=== PATIENT | female | born 1985 | race Caucasian/White ===

== ENCOUNTER 2020-12-14 08:15 | Inpatient (IN) | payer OTHER ==
[2020-12-14] MEDS ORDERED: OXYTOCIN 30 UNITS in 0.9% NS 30 UNIT/500 ML INFUS.BAG IVPB SCH (09:00)
[2020-12-14] MEDS: ELECTROLYTE-148 SOLN 1,000 ML IV SCH ×3 (09:20→18:30)
[2020-12-14] MEDS ORDERED: OXYTOCIN 30 UNITS in 0.9% NS 30 UNIT/500 ML INFUS.BAG IVPB ONE (09:32)
[2020-12-14 09:48] VITALS: BMI 36.7
[2020-12-14 10:44] LABS: BASO % 0.4 % (0-2.0); EOS % 0.4 % (0-4.5); HEMATOCRIT 34.9 % (32.4-45.2); HEMOGLOBIN 12.1 GM/dL (10.7-15.3); MCH 31.9 pg (25.7-33.7); MCHC 34.7 g/dl (32.0-36.0); MEAN CELL VOLUME 91.8 fl (80-96); MEAN PLT VOLUME 9.8 fl (7.5-11.1); MONO % 3.9 % (3.8-10.2); NEUT % 83.3 % (42.8-82.8); PLATELET COUNT 255 K/MM3 (134-434); RDW 14.3 % (11.6-15.6); WHITE BLOOD COUNT 8.4 K/mm3 (4.0-10.0)
[2020-12-14 10:56] LABS: INR 0.89 (0.83-1.09)
[2020-12-14 10:58] LABS: POTASSIUM 3.9 mmol/L (3.5-5.1)
[2020-12-14 10:59] LABS: ACTIVATED PTT 27.2 SECONDS (25.2-36.5); CALCIUM 8.7 mg/dL (8.5-10.1)
[2020-12-14 11:00] LABS: BLOOD UREA NITROGEN 9.4 mg/dL (7-18)
[2020-12-14 11:03] LABS: CREATININE 0.5 mg/dL (0.55-1.3)
[2020-12-14] MEDS ORDERED: PCA PUMP NR ONE ×2 (17:40→21:44)
[2020-12-14] MEDS ORDERED: FENTANYL/BUPIVACAINE/NS/PF - PCEA - 50 ML DISP.SYRIN EP ONE ×2 (17:40→21:44)
[2020-12-14] MEDS ORDERED: BUPIVACAINE HCL/PF 0.25% (2.5MG/ML) 10 ML VIAL ONE (17:47)
[2020-12-14] MEDS ORDERED: NALOXONE HCL 0.4 MG/ML VIAL IVPUSH PRN (18:12)
[2020-12-14] MEDS ORDERED: FENTANYL/BUPIVACAINE/NS/PF - PCEA - 50 ML DISP.SYRIN EP SCH (18:15)
[2020-12-14] MEDS ORDERED: OXYTOCIN 20 UNITS in 0.9% NS 20 UNIT/1,000 ML INFUS.BAG IV ONE ×2 (21:53→23:23)
[2020-12-14] MEDS ORDERED: LIDOCAINE HCL 1% PRESERVATIVE FREE - 30ML VIAL ONE (21:54)
[2020-12-14] MEDS ORDERED: METHYLERGONOVINE MALEATE 0.2 MG/1 ML AMP IM PRN (22:20)
[2020-12-14] MEDS ORDERED: BENZOCAINE 20% 57 GM BOTTLE TP PRN (22:20)
[2020-12-14] MEDS ORDERED: BISACODYL 10 MG SUPP.RECT RC PRN (22:20)
[2020-12-14] MEDS ORDERED: WITCH HAZEL 50% (TUCKS) 40 PAD/JAR PAD TP PRN (22:20)
[2020-12-14] MEDS ORDERED: BENZOCAINE 28 GM HEMORRHOIDAL OINTMENT TP PRN (22:20)
[2020-12-14] MEDS ORDERED: OXYTOCIN 20 UNITS in 0.9% NS 20 UNIT/1,000 ML INFUS.BAG IV SCH (22:30)
[2020-12-15] MEDS: IBUPROFEN 600 MG TABLET (FP) PO PRN ×4 (03:18→21:23)
[2020-12-15] MEDS: ACETAMINOPHEN 325 MG TABLET (FP) PO PRN ×4 (03:19→21:23)
[2020-12-15 08:45] LABS: EOS % 0.2 % (0-4.5); HEMOGLOBIN 11.5 GM/dL (10.7-15.3); PLATELET COUNT 213 K/MM3 (134-434)
[2020-12-15 08:48] LABS: BASO % 0.2 % (0-2.0); HEMATOCRIT 34.1 % (32.4-45.2); LYMPH % 4.6 % (8-40); MCH 31.5 pg (25.7-33.7); MCHC 33.8 g/dl (32.0-36.0); MEAN CELL VOLUME 93.4 fl (80-96); MEAN PLT VOLUME 10.2 fl (7.5-11.1); MONO % 3.4 % (3.8-10.2); NEUT % 91.6 % (42.8-82.8); RBC 3.65 M/mm3 (3.60-5.2); RDW 14.2 % (11.6-15.6); WHITE BLOOD COUNT 16.2 K/mm3 (4.0-10.0)
[2020-12-15] MEDS: PRENATAL VITAMINS W/ FOLIC ACID TABLET (FP) PO SCH (10:30)
[2020-12-15 10:42] LABS: ANISOCYTOSIS 0; MACROCYTOSIS 0; PLATELET ESTIMATE NORMAL
[2020-12-15] MEDS ORDERED: SENNOSIDES/DOCUSATE COMBO (SENNA PLUS) TABLET (UD) PO PRN (22:00)
[2020-12-16] MEDS: IBUPROFEN 600 MG TABLET (FP) PO PRN (08:08)
[2020-12-16] MEDS: ACETAMINOPHEN 325 MG TABLET (FP) PO PRN (08:09)
[2020-12-16 08:25] VITALS: BP 126/78; PULSE 72; TEMP 98.4
[2020-12-16] MEDS: PRENATAL VITAMINS W/ FOLIC ACID TABLET (FP) PO SCH (09:50)
== END 2020-12-16 13:35 | disposition home or self-care (01) | DRG 560 ==
LOC: JLDR 08:15 → J3W 12-15 00:12
PROVIDERS: ADMIT Obstetrics & Gynecology; ATTEND Obstetrics & Gynecology
PROC: 10E0XZZ Delivery of Products of Conception, External Approach (ICD-10-PCS; principal; 2020-12-14)
PROC: 10907ZC Drainage of Amniotic Fluid, Therapeutic from Products of Conception, Via Natural or Artificial Opening (ICD-10-PCS; 2020-12-14)
DX: O24.429 Gestational diabetes mellitus in childbirth, unspecified control (principal); Z3A.39 39 weeks gestation of pregnancy; Z37.0 Single live birth
CPT/HCPCS: 36415; 59409; 80048; 85025; 85610; 85730; 86780; 86850; 86900; 86901

== ENCOUNTER 2021-02-03 04:12 | Day surgery (SDC) | payer OTHER ==
[2021-02-02 16:33] VITALS: BMI 32.7
[2021-02-03 11:44] LABS: HEMATOCRIT 34.7 % (32.4-45.2); HEMOGLOBIN 11.7 GM/dL (10.7-15.3); MCH 30.8 pg (25.7-33.7); MCHC 33.9 g/dl (32.0-36.0); MEAN CELL VOLUME 90.8 fl (80-96); MEAN PLT VOLUME 7.9 fl (7.5-11.1); PLATELET COUNT 306 K/MM3 (134-434); RBC 3.82 M/mm3 (3.60-5.2); RDW 14.8 % (11.6-15.6); WHITE BLOOD COUNT 5.3 K/mm3 (4.0-10.0)
[2021-02-03] MEDS ORDERED: MIDAZOLAM HCL 2 MG/2 ML SINGLE DOSE VIAL ONE (13:09)
[2021-02-03] MEDS ORDERED: PROPOFOL 20 ML ONE (13:10)
[2021-02-03] MEDS ORDERED: FERRIC SUBSULFATE 500 ML BOTTLE TP ONE (13:45)
[2021-02-03] MEDS ORDERED: IODINE/POTASSIUM IODIDE 5%/10% 14 ML BOTTLE NR ONE (13:50)
[2021-02-03] MEDS ORDERED: DEXAMETHASONE SOD PHOSPHATE 4 MG/1 ML VIAL ONE (14:10)
[2021-02-03] MEDS ORDERED: ONDANSETRON 4 MG/2 ML VIAL IVPUSH PRN (14:24)
[2021-02-03] MEDS ORDERED: PROMETHAZINE HCL 25 MG/1 ML VIAL IVPB PRN (14:24)
[2021-02-03] MEDS ORDERED: oxyCODONE HCL 5 MG TABLET PO PRN (14:24)
[2021-02-03] MEDS ORDERED: LACTATED RINGERS SOLUTION 1,000 ML IV SCH (14:30)
[2021-02-03] MEDS ORDERED: KETOROLAC TROMETHAMINE 30 MG/1 ML VIAL IVPUSH ONE (15:19)
[2021-02-03 16:00] VITALS: TEMP 98
[2021-02-03 17:20] VITALS: BP 129/65; PULSE 68
== END 2021-02-03 17:15 | disposition home or self-care (01) ==
LOC: JASU-SURG 04:12
PROVIDERS: ATTEND Obstetrics & Gynecology
PROC: 0UBC8ZX Excision of Cervix, Via Natural or Artificial Opening Endoscopic, Diagnostic (ICD-10-PCS; principal; 2021-02-03 13:00)
DX: D06.0 Carcinoma in situ of endocervix (principal); N72 Inflammatory disease of cervix uteri
CPT/HCPCS: 36415; 84702; 85027; 86850; 86900; 86901; 86922; 88307-TC; 94760

== ENCOUNTER 2022-07-02 15:59 | Emergency (ER) | payer OTHER ==
[2022-07-02 16:17] VITALS: BP 154/76; PULSE 65; RESP 18; TEMP 98; BMI 32.9
[2022-07-02 18:14] LABS: BASO % 0.7 % (0-2.0); EOS % 1.1 % (0-4.5); HEMATOCRIT 37.8 % (32.4-45.2); HEMOGLOBIN 12.7 GM/dL (10.7-15.3); LYMPH % 16.9 % (8-40); MCH 31.1 pg (25.7-33.7); MCHC 33.6 g/dl (32.0-36.0); MEAN CELL VOLUME 92.8 fl (80-96); MEAN PLT VOLUME 8.5 fl (7.5-11.1); MONO % 4.7 % (3.8-10.2); NEUT % 76.6 % (42.8-82.8); PLATELET COUNT 373 10^3/uL (134-434); RBC 4.07 M/mm3 (3.60-5.2); RDW 13.6 % (11.6-15.6)
[2022-07-02 18:44] LABS: CALCIUM 9.3 mg/dL (8.5-10.1)
[2022-07-02 18:45] LABS: ALBUMIN 3.8 g/dl (3.4-5.0); BLOOD UREA NITROGEN 7.4 mg/dL (7-18)
[2022-07-02 18:48] LABS: CREATININE 0.6 mg/dL (0.55-1.3)
[2022-07-02 18:51] LABS: BILIRUBIN,TOTAL 0.4 mg/dL (0.2-1); TOT PROT 7.4 g/dl (6.4-8.2)
[2022-07-03 02:40] LABS: EPI CELLS >36 /uL (0-25.1); HYALINE CASTS 3 /uL (0-3.1); PH,URINE 6.5 (5.0-8.0); URINE APPEARANCE CLOUDY; URINE BACTERIA 1049 /uL (0-1359); URINE BILIRUBIN NEGATIVE (NEGATIVE); URINE COLOR ORANGE; URINE GLUCOSE (UA) NEGATIVE (NEGATIVE); URINE KETONE NEGATIVE (NEGATIVE); URINE LEUK ESTERASE 2+ (NEGATIVE); URINE NITRITE NEGATIVE (NEGATIVE); URINE PROTEIN 2+ (NEGATIVE); URINE RBC 2804 /uL (0-23.9); URINE UROBILINOGEN 0.2 mg/dL (0.2-1.0); URINE WBC 234 /uL (0-25.8)
[2022-07-03 02:52] LABS: HCG,QUALITATIVE URINE POSITIVE
== END 2022-07-03 04:36 | disposition home or self-care (01) ==
LOC: JER 15:59
DX: O03.9 Complete or unspecified spontaneous abortion without complication (principal)
CPT/HCPCS: 36415; 76817-TC; 80053; 81003; 84702; 84703; 85025; 86850; 86900; 86901; 87086; 99284-25

== ENCOUNTER 2022-07-08 15:42 | Emergency (ER) | payer OTHER ==
[2022-07-08 15:53] VITALS: BP 109/67; PULSE 72; RESP 18; TEMP 98.2; BMI 34.2
== END 2022-07-08 18:29 | disposition home or self-care (01) ==
LOC: JER 15:42 → JERFT 15:42
DX: O03.9 Complete or unspecified spontaneous abortion without complication (principal)
CPT/HCPCS: 36415; 84702; 99283-25